=== PATIENT | male | born 1955 | race Caucasian/White ===

== ENCOUNTER 2018-06-11 18:39 | Inpatient (IN) ==
[2018-06-11 19:41] LABS: BASO# 0.02 X1000 (0.0-0.2); BASO% 0.3 % (0.0-0.8); EOS# 0.14 X1000 (0.0-0.7); HEMATOCRIT 44.2 % (42.0-52.0); IMM GRAN# 0.03 X1000 (0.0-0.04); IMM GRAN% 0.4 % (0.0-0.5); LYMPH% 31.5 % (20.5-51.1); MCH 32.7 PG (27-31); MCHC 36.2 g/dL (33-37); MCV 90.4 FL (81-99); MONO# 0.52 X1000 (0.11-0.59); MONO% 7.4 % (1.7-9.3); MPV 9.7 FL (7.4-10.4); NEUT# 4.07 X1000 (1.4-6.5); NEUT% 58.4 % (42.2-75.2); PLT 179 X1000 (130-400); RBC 4.89 XMIL (4.7-6.1); RDW 12.2 % (11.5-14.5); WBC 6.98 X1000 (4.8-10.8)
[2018-06-11 19:57] LABS: INR 0.9; PROTIME 12.6 Seconds (11.0-16.0)
--- NOTE | 2018-06-11 19:58 | Diag Imaging Result Doc PS360 ---
EXAM: CHEST-2 VIEWS HISTORY: weakness syncope TECHNIQUE: Chest two views COMPARISON: 10/28/2011 FINDINGS: The lungs are well expanded. The heart is borderline mildly prominent. The vessels are not distended. There are no infiltrates. No pleural effusions. IMPRESSION: No acute abnormality. Electronically signed by Rufino Lopez 06/11/2018 7:55 PM
[2018-06-11 20:04] LABS: AGAP 15; ALBUMIN 4.2 g/dL (3.5-5.0); ALKALINE PHOSPHATASE 105 U/L (32-122); BUN 17 mg/dL (8-22); CALCIUM 9.4 mg/dL (8.8-10.2); CHLORIDE 103 mmol/L (98-107); COSMO 285; CREATININE 0.9 mg/dL (0.7-1.2); ESTIMATED GFR > 60; GLUCOSE 144 mg/dL (70-104); GOT 24 U/L (10-34); GPT 32 U/L (10-44); MAGNESIUM 1.7 mg/dL (1.5-2.7); POTASSIUM 3.5 mmol/L (3.5-5.1); SODIUM 141 mmol/L (136-145); TCO2 24 mmol/L (25-35); TOTAL PROTEIN 7.1 g/dL (6.3-8.3)
[2018-06-11 20:19] LABS: CK INDEX 1.9 (0.0-2.5); CK-MB 5.09 ng/mL (0.0-5.0)
[2018-06-11] MEDS ORDERED: NS 1,000 ML IV ONE ×2 (20:26→21:34)
[2018-06-11] MEDS ORDERED: ZOFRAN IV ONE (20:44)
--- NOTE | 2018-06-11 21:13 | Diag Imaging Result Doc PS360 ---
EXAM: CT HEAD W/O CONTRAST HISTORY: syncope TECHNIQUE: CT head without contrast COMPARISON: None. FINDINGS: No parenchymal hemorrhage. No epidural or subdural hematoma. No subarachnoid hemorrhage. No mass identified on this noncontrasted exam. No hydrocephalus. No sinus opacification. IMPRESSION: No hemorrhage. Negative brain CT without contrast. This exam was performed using automated exposure control, adjustment of mA or kV according to patient size, and/or use of iterative reconstruction technique. Electronically signed by Rufino Lopez 06/11/2018 9:10 PM
--- NOTE | 2018-06-11 21:42 | PROVIDER DOCUMENTATION ---
This chart was entered by Kamilla Benavides Scribe, acting as scribe for Zach Ruiz DO. HPI-Syncope/Dizziness - General Chief Complaint: Syncope Stated Complaint: PASSED OUT Time Seen by Provider: 06/11/18 19:52 Allergies/Adverse Reactions: Patient Allergies Allergy/AdvReac Type Severity Reaction Status Date / Time No Known Allergies Allergy Verified 10/31/14 11:24 Home Medications: Home Medication List Medication Instructions Recorded Confirmed Last Taken Type Acetaminophen/Diphenhydramine 1 each PO HS 10/31/14 11/01/14 10/30/14 21:00 History [Tylenol Pm] Aspirin [Rajiv Chewable Aspirin] 81 mg PO DAILY 10/31/14 11/01/14 10/31/14 09: 00 History Atenolol 50 mg PO DAILY 10/31/14 11/01/14 10/31/14 09:00 History Lovastatin 40 mg PO DAILY 10/31/14 11/01/14 10/30/14 21:00 History Omeprazole [Prilosec] 40 mg PO DAILY 10/31/14 11/01/14 10/31/14 09:00 History - History of Present Illness-Syncope/Dizzy Nature of Presenting Problem: 62 yom presents to ed w/co pt states he was going to eat w/ and felt "funny " and kept "fading in and out" and passed out while coming to a stop while driving. states he was out for a couple minutes. pt states he was sweating , hot, has a headache and nauseous. pt has no cp, sob, jaw or neck pain. pt states his feet were tingling but not his hands. pt had a similar incidence of passing out 15-20 yrs ago. pt has hx of htn and takes rx at night for it. pt and state they had earlier went hiking to [place] and pt tripped and fell. Recently Seen Here or By Another Healthcare Provider: No Review of Systems - Adult - REVIEW OF SYSTEMS - ADULT Constitutional: reports: no symptoms reported Eyes: reports: no symptoms reported Ears, Nose, Mouth & Throat: reports: no symptoms reported Cardiovascular: reports: see HPI, syncope. denies: chest pain, heart murmur, irregular heart rate Respiratory: reports: no symptoms reported Gastrointestinal: reports: no symptoms reported Genitourinary: reports: no symptoms reported Musculoskeletal: reports: no symptoms reported Integumentary: reports: no symptoms reported Neurological: reports: see HPI, headache/migraines, syncope, other (feet tingling). denies: dizziness/vertigo, numbness, slurred speech Psychiatric: reports: no symptoms reported Endocrine: reports: no symptoms reported Hematologic/Lymphatic: reports: no symptoms reported Allergic/Immunologic: reports: no symptoms reported All Other Systems: Reviewed and Negative Past History - Adult - PAST MEDICAL HISTORY-ADULT Review of Records: reports: Old Records Reviewed, Nursing Assessment Review, Medications Reviewed, Social history reviewed & non-contributory. Cardiovascular: reports: HTN Respiratory: reports: denies history Gastrointestinal: reports: denies history Obstetrical/Gynecological: reports: denies history Genitourinary: reports: denies history Musculoskeletal: reports: denies history Neurological: reports: denies history Endocrine/Immune: reports: Diabetes (borderline) Other Conditions: reports: denies history - PRIOR SURGERIES/PROCEDURES Surgical/Procedure History: reports: none - IMMUNIZATION STATUS Childhood Immunizations: See Nurse Assessment Flu Vaccine: See Nurse Assessment - FAMILY HISTORY Family History: reviewed, not pertinent - SOCIAL HISTORY Smoking: other (former) Substance Use: none/never Physical Exam-General - PHYSICAL EXAM-ADULT Initial Vital Signs Reviewed: Yes - CONSTITUTIONAL General Appearance: appears well, alert, no apparent distress - EYES Eyes: PERRL/EOMI - HEAD, EARS, NOSE, MOUTH & THROAT HENMT: normocephalic/atraumatic, moist mucous membranes, normal ENT inspection - NECK Neck: non-tender, full range of motion, supple - RESPIRATORY Respiratory: chest non-tender, lungs clear, normal breath sounds - CARDIOVASCULAR Cardiovascular: normal peripheral pulses, regular rate, rhythm, no edema, no gallop, no JVD, no murmur - GASTROINTESTINAL (ABDOMEN) Abdominal Exam: normal bowel sounds, soft, tenderness (rlq) - LYMPHATIC Lymphatic: no adenopathy - MUSCULOSKELETAL Back Exam: normal inspection, no CVA tenderness, no vertebral tenderness Extremity: normal range of motion, non-tender, normal inspection - SKIN Integumentary: normal color, normal turgor, warm/dry - NEUROLOGIC Neurologic: field captain II-XII nml as tested, grossly normal, no motor/sensory deficits - PSYCHIATRIC Psych/Mental Status: normal mood/affect, normal thought content, normal thought process, oriented x 3 Progress - PLAN OF CARE/RESULTS Progress/Plan/Lab Results: Vital Signs - 8 hr 06/11/18 19:03 Temperature 98 F Pulse Rate 93 H Respiratory Rate 18 Blood Pressure 161/99 O2 Sat by Pulse Oximetry 97 Laboratory Results - last 24 hr 06/11/18 06/11/18 06/11/18 19:06 19:27 19:27 WBC RBC Hgb Hct MCV MCH MCHC RDW Std Deviation Plt Count MPV Immature Gran % (Auto) Neut % (Auto) Lymph % (Auto) [place] % (Auto) Eos % (Auto) Baso % (Auto) Immature Gran # (Auto) Neut # (Auto) Lymph # (Auto) [place] # (Auto) Eos # (Auto) Baso # (Auto) PT INR D-Dimer, Quantitative Sodium Potassium Chloride Carbon Dioxide Anion Gap BUN Creatinine Estimated GFR/1.73 m2 BUN/Creatinine Ratio Glucose POC Glucose 134 H Calculated Osmolality Calcium Magnesium Total Bilirubin AST ALT Alkaline Phosphatase Creatine Kinase 274 H Creatine Kinase Index 1.9 CK-MB (CK-2) 5.09 H Troponin T < 0.010 Abl-S-Dquktriufuk Pept Total Protein Albumin Globulin Albumin/Globulin Ratio 06/11/18 06/11/18 06/11/18 19:27 19:27 19:27 WBC 6.98 RBC 4.89 Hgb 16.0 Hct 44.2 MCV 90.4 MCH 32.7 H MCHC 36.2 RDW Std Deviation 12.2 Plt Count 179 MPV 9.7 Immature Gran % (Auto) 0.4 Neut % (Auto) 58.4 Lymph % (Auto) 31.5 [place] % (Auto) 7.4 Eos % (Auto) 2.0 Baso % (Auto) 0.3 Immature Gran # (Auto) 0.03 Neut # (Auto) 4.07 Lymph # (Auto) 2.20 [place] # (Auto) 0.52 Eos # (Auto) 0.14 Baso # (Auto) 0.02 PT INR D-Dimer, Quantitative 0.43 Sodium 141 Potassium 3.5 Chloride 103 Carbon Dioxide 24 L Anion Gap 15 BUN 17 Creatinine 0.9 Estimated GFR/1.73 m2 > 60 BUN/Creatinine Ratio 19 Glucose 144 H POC Glucose Calculated Osmolality 285 Calcium 9.4 Magnesium 1.7 Total Bilirubin 0.40 AST 24 ALT 32 Alkaline Phosphatase 105 Creatine Kinase Creatine Kinase Index CK-MB (CK-2) Troponin T Mzg-T-Ghwxosgcxhi Pept Total Protein 7.1 Albumin 4.2 Globulin 3.0 Albumin/Globulin Ratio 1.0 06/11/18 06/11/18 06/11/18 19:27 19:27 19:34 WBC RBC Hgb Hct MCV MCH MCHC RDW Std Deviation Plt Count MPV Immature Gran % (Auto) Neut % (Auto) Lymph % (Auto) [place] % (Auto) Eos % (Auto) Baso % (Auto) Immature Gran # (Auto) Neut # (Auto) Lymph # (Auto) [place] # (Auto) Eos # (Auto) Baso # (Auto) PT 12.6 INR 0.90 D-Dimer, Quantitative Sodium Potassium Chloride Carbon Dioxide Anion Gap BUN Creatinine Estimated GFR/1.73 m2 BUN/Creatinine Ratio Glucose POC Glucose 153 H Calculated Osmolality Calcium Magnesium Total Bilirubin AST ALT Alkaline Phosphatase Creatine Kinase Creatine Kinase Index CK-MB (CK-2) Troponin T Rao-C-Forsgbrymkv Pept 33 Total Protein Albumin Globulin Albumin/Globulin Ratio Orders Category Date Time Status Admit - [facility] Routine AdmDCTranf 06/11/18 21:34 Ordered Activity - Bed Rest with BRP ORDERED Care 06/11/18 21:34 Ordered Call Admitting on Arrival AT ADMISSION Care 06/11/18 21:35 Ordered Neurological Check Q6H Care 06/11/18 21:34 Ordered Nursing- Obtain EKG once Care 06/11/18 19:10 Active Vital Signs Order ROUTINE Care 06/11/18 21:34 Ordered Diabetic Diet Diet 06/11/18 21:38 Ordered CHEST-2 VIEWS [RAD] Stat Exams 06/11/18 19:[address] HEAD W/O CONTRAST [CT] Stat Exams 06/11/18 20:25 Completed CBC WITH DIFF [HEME] Stat Lab 06/11/18 19:27 Completed CK PROFILE [SP CHEM] Stat Lab 06/11/18 19:27 Completed COMPREHENSIVE METABOLIC PANEL [CHEM] Stat Lab 06/11/18 19:27 Completed D-DIMER [COAG] Stat Lab 06/11/18 19:27 Completed MAGNESIUM [CHEM] Stat Lab 06/11/18 19:27 Completed PRO B-NATRIURETIC PEPTIDE Stat Lab 06/11/18 19:27 Completed PROTIME WITH INR [COAG] Stat Lab 06/11/18 19:27 Completed TROPONIN T Stat Lab 06/11/18 19:27 Completed 0.9% Sodium Chloride Inj [Ns] 1,000 ml Med 06/11/18 21:34 Ordered IV 125 mls/hr 0.9% Sodium Chloride Inj [Ns] 1,000 ml Med 06/11/18 20:26 Active IV 150 mls/hr Ondansetron [Zofran] Med 06/11/18 20:44 Discontinued 4 mg IV NOW ONE Oxygen Device Routine Oth 06/11/18 21:36 Ordered EKG [EKG] Stat Ther 06/11/18 19:10 Ordered Result Diagrams: 06/11/18 19:27 06/11/18 19:27 - REASSESSMENT Reassessment #1 Time Reassessed: 21:40 Status: unchanged - XRAY 1 XRAY: Bilateral (EXAM: CHEST-2 VIEWS HISTORY: weakness syncope TECHNIQUE : Chest two views COMPARISON: 10/28/2011 FINDINGS: The lungs are well expanded. The heart is borderline mildly prominent. The vessels are not distended. There are no infiltrates. No pleural effusions. IMPRESSION: No acute abnormality. Electronically signed by Rufino Lopez 06/11/2018 7:55 PM) XRAY Study: Ribs Impression: Normal - CONSULTS/PCP/HOSPITALIST Notification #1 *Consult/PCP/Hospitalist*: Dr Hernández Time Discussed: 21:41 Consult Disposition: Admit Departure - Departure Date of Disposition Decision: 06/11/18 Time of Disposition Decision: 21:41 DIAGNOSIS: Syncope and collapse Disposition: ADMITTED INPATIENT 09 Certified Medical Emergency: Emergent Condition: Stable Referrals and Follow-Ups: Radha Aponte CRNP [Primary Care Provider] - - Critical Care Note This patient required my direct & personal management of CC.: No Attestation - Physician/ MANUELA Attestation Patient care was provided by Advanced Practice Provider:: No The physician spent face to face time with patient:: Yes Advanced Practice Provider documentation review:: Supervising physician onsite and consulted in the evaluation and care of this patient. The physician did have a face to face encounter with the patient. This chart was documented by the indicated scribe, (Kamilla Benavides Scribe) and accurately reflects the services I performed and decisions made by , Zach Ruiz DO, as attested by the provider's signature.
--- NOTE | 2018-06-12 00:29 | EKG Report ---
Test Performed on : 06/11/2018 7:13:09 PM Test Reason : syncope Blood Pressure : / mmHG Vent. Rate : 085 BPM Atrial Rate : 085 BPM P-R Int : 144 ms QRS Dur : 088 ms QT Int : 374 ms P-R-T Axes : -13 075 065 degrees QTc Int : 445 ms Normal sinus rhythm. Low voltage QRS Borderline ECG When compared with ECG of 28-OCT-2011 10:15, Nonspecific T wave abnormality, worse in Inferior leads Nonspecific T wave abnormality now evident in Lateral leads Unconfirmed Result
[2018-06-12 07:13] LABS: HEMATOCRIT 43.9 % (42.0-52.0); HEMOGLOBIN 15.5 g/dL (14.0-18.0); MCH 32.4 PG (27-31); MCHC 35.3 g/dL (33-37); MCV 91.6 FL (81-99); MPV 9.3 FL (7.4-10.4); RBC 4.79 XMIL (4.7-6.1); RDW 12.4 % (11.5-14.5); WBC 6.66 X1000 (4.8-10.8)
[2018-06-12 07:39] LABS: AGAP 12; ALBUMIN 4.1 g/dL (3.5-5.0); ALKALINE PHOSPHATASE 104 U/L (32-122); BUN 15 mg/dL (8-22); CALCIUM 9.3 mg/dL (8.8-10.2); CHLORIDE 105 mmol/L (98-107); COSMO 291; CREATININE 0.9 mg/dL (0.7-1.2); ESTIMATED GFR > 60; GLUCOSE 123 mg/dL (70-104); GOT 21 U/L (10-34); GPT 30 U/L (10-44); POTASSIUM 3.9 mmol/L (3.5-5.1); SODIUM 145 mmol/L (136-145); TCO2 27 mmol/L (25-35)
[2018-06-12 08:03] LABS: CK INDEX 1.6 (0.0-2.5); CK-MB 4.66 ng/mL (0.0-5.0)
--- NOTE | 2018-06-12 14:23 | HISTORY AND PHYSICAL ---
CHIEF COMPLAINT: Syncope. HISTORY OF PRESENT ILLNESS: This is a 62-year-old gentleman with a history of hypertension who presented to the emergency room after having a witnessed syncopal episode by his . The patient states that they went out to eat that he kept feeling funny and felt that he was fading in an out. He was driving and he became confused. He pulled over while driving and the stated that he was "out for a couple minutes." He was sweating. He had no incontinence of stool or urine. The patient stated he had no chest pain, shortness of breath, jaw or neck pain, no palpitations. He did state his feet were tingling after this incident. PAST MEDICAL HISTORY: Hypertension. PAST SURGICAL HISTORY: Denies. SOCIAL HISTORY: He denies alcohol, tobacco, or illicit drug use. He is lives with his . ALLERGIES: No known drug allergies. HOME MEDICATIONS: A list will be obtained by the nursing staff and once verified will review and restart as appropriate. REVIEW OF SYSTEMS: Discussed with patient with pertinent positives stated in HPI. He denied any chest pain, palpitations, any shortness of breath, cough, fever, chills, recent night sweats, any weight loss or weight gain, no shortness of breath, PND, orthopnea, nausea, vomiting, diarrhea, constipation, black or bloody vomitus or stools, any hematuria, dysuria, frequency, urgency. PHYSICAL EXAMINATION: GENERAL: This is a 62-year-old gentleman who is sitting up in the bed in no distress. VITAL SIGNS: Blood pressure 151/83 with a heart rate of 74, respirations are 18, temperature is 98.4 degrees oral with room air saturations 98-100%. HEENT: Pupils are equal, round, react to light. EOMs are intact. Sclerae anicteric. Head is normocephalic, atraumatic. Mucous membranes are moist. NECK: Supple with trachea midline. CARDIOVASCULAR: Regular rate and rhythm. S1 and S2 appreciated. PULMONARY: Breath sounds are clear with no increased work of breathing noted. Chest rises and falls symmetric respiration. Chest wall is nontender to palpation. GASTROINTESTINAL: Abdomen soft, nontender, nondistended with bowel sounds in all 4 quadrants. GENITOURINARY: He has no CVA nor suprapubic tenderness. NEUROLOGIC: He is alert, oriented x3. Cranial nerves 2-12 grossly intact. SKIN: Warm and dry. LABS: WBC is 6.9 with a hemoglobin of 16, hematocrit 44.2, platelets 179,000. Sodium 141, potassium 3.5, BUN 17, creatinine 0.9 with a glucose of 144. CPK is 274. Troponins are negative. CT of the head reveals no hemorrhage. Negative brain CT without contrast. Chest x-ray reveals no acute abnormality. ASSESSMENT AND PLAN: This is a 62-year-old gentleman who had a syncopal episode while driving with his . 1. Syncope. 2. Hypertension. 3. Hyperglycemia. The patient has been admitted to the medical-surgical floor and placed on telemetry. Carotid ultrasound as well as an echocardiogram. Neuro checks. Identify his home medications and continue as appropriate. CBC, CMP in the morning. Hemoglobin A1c. Further treatments pending hospital course. Dictated by SAKINA Sherwood for Rodolfo Hernández MD This chart was documented by, SAKINA Sherwood and accurately reflects the services performed, treatment plan and medical decisions as attested by the providers signature Rodolfo Hernández MD. cc: SAKINA Sherwood MD MTDD
[2018-06-12] MEDS: LOPRESSOR PO SCH ×2 (16:50→20:16)
--- NOTE | 2018-06-12 18:04 | HISTORY AND PHYSICAL ---
ADDENDUM: Patient is a 62-year-old male who presented to the ER. Notes that he had been out at [facility] all day and had no complications. He presented to the ER after he was driving home. States when he was driving he started to feel faint and lightheaded, felt as though everything was getting dark. He attempted to heat treat puller and slowed down but he was not able to make it. Thankfully did get slow enough his could get the car stopped and then park before he completely passed out. Since presenting to the ER he has been awake, alert, oriented. He has had no further symptoms, no complications. We will admit him to the hospital, check carotid Dopplers, echocardiogram and will follow. Hopefully we can discharge him home and he can follow up outpatient as needed. cc: Rodolfo Hernández MD
[2018-06-12] MEDS ORDERED: MIRAPEX PO SCH (21:00)
[2018-06-12] MEDS ORDERED: SINGULAIR PO SCH (21:00)
[2018-06-13 06:17] LABS: HEMATOCRIT 44.5 % (42.0-52.0); HEMOGLOBIN 15.4 g/dL (14.0-18.0); MCH 32.2 PG (27-31); MCHC 34.6 g/dL (33-37); MCV 93.1 FL (81-99); MPV 9.8 FL (7.4-10.4); RBC 4.78 XMIL (4.7-6.1); RDW 12.5 % (11.5-14.5); WBC 5.07 X1000 (4.8-10.8)
[2018-06-13 06:35] LABS: HEMOGLOBIN A1C 5.7 % (4.8-6.0)
[2018-06-13 06:49] LABS: AGAP 12; ALBUMIN 3.7 g/dL (3.5-5.0); ALKALINE PHOSPHATASE 96 U/L (32-122); BUN 18 mg/dL (8-22); CALCIUM 8.8 mg/dL (8.8-10.2); CHLORIDE 106 mmol/L (98-107); COSMO 289; CREATININE 0.8 mg/dL (0.7-1.2); ESTIMATED GFR > 60; GLUCOSE 135 mg/dL (70-104); GOT 22 U/L (10-34); GPT 25 U/L (10-44); SODIUM 143 mmol/L (136-145); TCO2 25 mmol/L (25-35); TOTAL PROTEIN 6.6 g/dL (6.3-8.3)
[2018-06-13] MEDS ORDERED: PRILOSEC PO SCH (07:00)
[2018-06-13] MEDS ORDERED: LEXISCAN ONE (09:00)
[2018-06-13] MEDS ORDERED: ASPIRIN PO SCH (09:00)
[2018-06-13] MEDS ORDERED: PRINIVIL PO SCH (09:00)
--- NOTE | 2018-06-13 10:53 | Extremity Venous Study ---
EXAM: Carotid Ultrasound HISTORY: syncope TECHNIQUE: Carotid Doppler ultrasound COMPARISON: None. FINDINGS: Right: There is normal flow in the common carotid artery. No occlusion or stenosis. Normal flow in the internal carotid artery. Peak systolic velocity is 106 cm/s. The ICA/CCA ratio is 1.35. Antegrade flow in the vertebral artery. Left: There is normal flow in the common carotid artery. No occlusion or stenosis. Normal flow in the internal carotid artery. Peak systolic velocity 72 cm/s. The ICA/CCA ratio 0.77. There is antegrade flow in the vertebral artery. IMPRESSION: No stenosis within either common carotid artery or within either internal carotid artery. Electronically signed by Rufino Lopez 06/13/2018 10:51 AM
--- NOTE | 2018-06-13 13:30 | ECHO REPORT ---
ORDER DATE: 06/12/2018 MEASUREMENTS: Left ventricular end-diastolic diameter 3.9, systolic diameter 2.6, septal thickness 1.2, posterior wall thickness 1.2, aortic root 2.9, left atrium 4.5. SUMMARY: 1. Adequate quality study. 2. Aortic valve is trileaflet and opens normally on 2-dimensional images. Peak gradient across aortic valve is less than 10 mmHg. Mitral, tricuspid, and pulmonic valves are without evidence of structural abnormality with very mild mitral regurgitation and mild tricuspid regurgitation. The estimated systolic PA pressure by Doppler is 45 mmHg suggesting mild pulmonary hypertension. Aortic root is normal in size. 3. Normal left chamber size with mild concentric left hypertrophy is demonstrated. Estimated left ventricular ejection fraction appears to be at least 65%. No regional wall motion abnormalities evident. Doppler suggests grade 1 left ventricular diastolic dysfunction. Left atrium is mildly enlarged. Right atrium, right ventricle are normal in size with grossly preserved right ventricular systolic function. 4. No pericardial effusion. 5. Appearance of inferior vena cava suggests normal central venous pressure. cc: MD Rodolfo Garza MD
[2018-06-13 15:00] VITALS: BP 166/72
--- NOTE | 2018-06-13 15:59 | Diag Imaging Result Document ---
PROCEDURE NAME: MYOCARDIAL PERF SCAN, STR/REST - 06/12/2018 MYOCARDIAL LEXISCAN PERFUSION STUDY: Lexiscan stress test by Dr. Ramirez. Following Lexiscan infusion, Cardiolite was injected. Gated SPECT images were obtained in standard views. 14.9 mCi of Cardiolite was injected for the rest phase, 41.4 mCi of Cardiolite was injected for the stress phase. Images revealed significant chest wall and diaphragmatic attenuation. Normal left ventricular cavity size. Normal myocardial perfusion. Left ventricular ejection fraction 66%. CONCLUSIONS: 1. Normal myocardial perfusion. 2. Left ventricular ejection fraction by gated SPECT was 66%. cc: MD Rodolfo Saleem MD [facility]
[2018-06-13] MEDS ORDERED: MEVACOR PO SCH (18:00)
--- NOTE | 2018-06-14 06:49 | GRADED EXERCISE REPORT ---
DATE: 06/13/2018 DISCHARGE DIAGNOSIS: Hypertension, syncope, and chest pains. SUMMARY: The patient was evaluated, underwent GXT per protocol. No significant ST changes. No significant clinical changes. The test was felt to be clinically negative, and electrically negative. cc: Hayden Ramirez MD
--- NOTE | 2018-06-14 14:52 | DISCHARGE SUMMARY ---
ADMISSION DATE: 06/11/2018 DISCHARGE DATE: 06/13/2018 DISPOSITION: Patient was just discharged in stable condition. DISCHARGE DIAGNOSES: 1. Probable inferior myocardial infarction ([place]). 2. Atypical chest pain. 3. Syncope. WORKUP: Includes echocardiogram which showed an EF 65%, grade 1 LV dysfunction, mild concentric LVH. No major other pathologies per his read. Myocardial perfusion scan reveals EF was 66%. Carotid Doppler. Workup was negative. Telemetry set up was negative. EKG was unremarkable. RECOMMENDATIONS: I would recommend, though, he follow up his PCP, Dr. Ruiz and in [facility] for a loop monitor, but there was no significant pathology on his cardiac testing noted here. DISCHARGE MEDICATIONS: Are the same. Lopressor 50, Singulair 10, pramipexole 0.125 at bedtime, aspirin 81 daily, lisinopril 10 daily, lovastatin 40 daily, and Prilosec 40 daily. DISCHARGE CONDITION: Stable. PLAN: We will continue to follow closely. cc: MD Zach Cuello, [facility]
--- NOTE | 2018-06-29 10:24 | DISCHARGE SUMMARY ---
ADMISSION DATE: 06/11/2018 DISCHARGE DATE: 06/13/2018 ADDENDUM: There was question of inferior TX. After reviewing EKGs, I do not see any evidence of inferior TX previously. He does have some diastolic dysfunction. He certainly did not have an acute TX and EKGs are not consistent with an inferior TX. cc: Hayden Ramirez MD
== END 2018-06-13 18:38 | disposition home or self-care (01) | DRG 312 ==
LOC: P.ED 18:39 → SUATTDRO 22:10 → P.EDIPHOLD 22:10 → P.MEDSURG 06-12 01:33
PROVIDERS: ATTEND Internal Medicine
CPT/HCPCS: 70450; 71020; 71046; 78452; 80053; 82550; 82553; 82948; 83036; 83735; 83880; 84484; 85025; 85027; 85379; 85610; 93005; 93017; 93306; 93880; 94761; 96361; 96374; 99285; A9270; A9500; J2405; J2785; J7030; XXXXX